=== PATIENT | female | born 1960 | race Caucasian/White ===

== ENCOUNTER 2019-04-09 11:46 | Outpatient (CLI) | payer OTHER ==
[~2019-04-09 11:46] MED LIST: CINTROID; PERCOCET 5-3251 EACH PO; SYNTHROID125 MCG PO
== END 2019-04-09 11:52 | disposition home or self-care (01) ==
LOC: RAD 11:46
DX: M25.561 Pain in right knee (principal); M25.511 Pain in right shoulder; M25.512 Pain in left shoulder

== ENCOUNTER 2021-10-12 15:02 | Emergency (ER) | payer OTHER ==
[~2021-10-12] VITALS: Ht 167.6 cm; Wt 68.0 kg
[2021-10-12] MEDS ORDERED: CHILDREN'S ASPI81 MG PO (15:12)
[2021-10-12] MEDS ORDERED: VALSARTAN80 MG PO (15:12)
[2021-10-12] MEDS ORDERED: BENADRYL ITCH C59 ML TOP (18:42)
== END 2021-10-12 19:09 | disposition home or self-care (01) ==
LOC: ER 15:02
DX: R21 Rash and other nonspecific skin eruption (principal)

== ENCOUNTER 2022-03-21 10:27 | Outpatient (CLI) | payer OTHER ==
[~2022-03-21 10:27] MED LIST changes: +BENADRYL ITCH C59 ML TOP; +CHILDREN'S ASPI81 MG PO; +VALSARTAN80 MG PO
== END 2022-03-21 11:00 | disposition home or self-care (01) ==
LOC: RAD 10:27
PROVIDERS: ATTEND Orthopaedic Surgery
DX: M25.511 Pain in right shoulder (principal); M25.512 Pain in left shoulder

== ENCOUNTER 2022-08-01 09:54 | Outpatient (CLI) | payer OTHER | END 2022-08-01 16:11 | disposition home or self-care (01) | LOC: RAD 09:54 | PROVIDERS: ATTEND Orthopaedic Surgery | DX: M25.511 Pain in right shoulder (principal); M25.512 Pain in left shoulder ==